=== PATIENT | male | born 1965 | race Caucasian/White ===

== ENCOUNTER 2021-04-20 08:14 | Emergency (ER) | payer OTHER, SELFPAY ==
[2021-04-20] VITALS (48 sets, daily range): BP systolic 106–131; BP diastolic 70–88; PULSE 54–82; RESP 6–22; TEMP 36.4–37.3; O2SAT 95–100
--- NOTE | ~2021-04-20 | XR_ITS ---
EXAMINATION: XR chest 1V portable EXAM DATE: 04/20/2021 08:50 INDICATION: sternal chest pain, nausea, had ND x6 days ago . TECHNIQUE: Portable AP frontal chest x-ray was obtained. There is no prior study for comparison. FINDINGS: The lungs are clear. There are no pleural effusions. The cardiomediastinal silhouette is within normal limits. There is no pneumothorax suspected. The bones and soft tissues are unremarkab le. IMPRESSION: No acute cardiopulmonary findings. Reviewed, dictated and finalized at location [facility]
--- NOTE | 2021-04-20 08:15 | ECG_ITS ---
Measurements Intervals [place] Rate: 68 P: 72 [place]: 155 QRS: 42 QRSD: 89 T: 68 QT: 364 QTc: 388 Interpretive Statements SINUS RHYTHM WITH SINUS ARRHYTHMIA LOW-VOLTAGE QRS IN LIMB LEADS BORDERLINE ECG NO PREVIOUS ECG AVAILABLE FOR COMPARISON Electronically Signed On 04-20-2021 13:18:14 [employer] by Moose Gonsalez M.D.
[2021-04-20] MEDS: ASPIRIN 81 MG CHEWABLE TABLET 324 MG PO (08:41)
--- NOTE | 2021-04-20 08:44 | ED.CHESTPAIN ---
HPI - Chest Pain General Chief Complaint: Chest Pain Stated Complaint: CHEST PAIN Time Seen by Provider: 04/20/21 08:29 Source: RN notes reviewed History of Present Illness HPI narrative: Patient presents emergency department from home for chest pain. Patient states symptoms began approximately 830 this morning when he was sitting down at work. The pain is over the midsternal chest and does not radiate described as a pressure associated with nausea patient also states he has had feelings like his heart was racing patient denies any abdominal pain vomiting or diarrhea. States that he was at [facility] last week and was admitted for chest pain and had a stress test that was negative at that time and was seen by Dr. Lemus. Patient states symptoms seem to worsen when he takes a deep breath Related Data Allergies Allergy/AdvReac Type Severity Reaction Status Date / Time Penicillins Allergy Mild Verified 05/27/09 19:36 Review of Systems Review of Systems: Gen.: Denies fevers or chills ENT: Denies congestion Respiratory: Ports shortness of breath CV: See HPI GI: Denies abdominal pain nausea, emesis or diarrhea Musculoskeletal: Denies back pain or muscle pain Neuro: Denies numbness, tingling, weakness or focal weakness Skin: Denies rash Except as documented, all other systems reviewed and negative [facility] Past Medical History Medical History (Updated 04/20/21 @ 13:09 by Kenny Wilkinson DO) Patient denies significant medical history Social History Social History (Updated 04/20/21 @ 13:07 by Kenny Wilkinson DO) Smoking status: Never smoker Exam Narrative: APPEARANCE: No acute distress, nontoxic, resting in bed EYES: EOMI HEENT: Normocephalic, atraumatic, OMM RESPIRATORY: No respiratory distress Clear to auscultation bilaterally with no rhonchi wheezing or rales. Patient states chest pain does increase with deep inspiration CARDIOVASCULAR: Regular rate and rhythm without murmurs rubs or gallops. ABDOMINAL: Soft, nontender, nondistended, no rebound or guarding MUSCULOSKELETAl: Moves all extremities. No clubbing, cyanosis or edema. NEURO: Awake and alert. Following commands, speech normal, no focal deficits SKIN:: Warm, dry. No rashes lesions or abrasions PSYCHIATRIC: Normal affect/mood, Course Course Emergency Course: Obtained old records from [facility] : Discussed with Dr. Lemus presentation work-up. Per Dr. Lemus patient with stress test lasting for approximately 10 minutes with negative stress test last week feels patient may be discharged with ER troponin with follow-up as an outpatient Patient remained on conveyor monitor no arrhythmias noted Discussed with patient results of workup and diagnosis. Discussed need for follow-up with primary care, proper use of medication, and reasons to return to the emergency department. Patient understands and agrees to current treatment plan Vital Signs Vital signs: Vital Signs Temperature 98.2 F 04/20/21 08:20 Pulse Rate 72 04/20/21 08:20 Respiratory Rate 18 04/20/21 08:20 Blood Pressure 120/81 04/20/21 08:20 Pulse Oximetry 99 04/20/21 08:20 Temperature 99.0 F 04/20/21 10:48 Pulse Rate 73 04/20/21 12:31 Respiratory Rate 13 04/20/21 12:31 Blood Pressure 122/84 04/20/21 12:31 Pulse Oximetry 97 04/20/21 12:31 MDM - Chest Pain MDM Narrative Medical decision making narrative: Patient's EKGs and labs are without significant high risk changes. Cardiac risk factors reviewed. Patient is felt likely low risk for ACS and reasonable for further risk stratification testing as an outpatient. Pain was not sudden or maximal in onset without tearing or ripping quality. No other signs of symptoms suggest aortic dissection. A low-risk Wells criteria is noted, PE is felt to be unlikely. No pneumonia seen on evaluation today. Patient is felt to be a reasonable candidate for continued evaluation as an outpatient. Patient with stress test
[2021-04-20 08:53] LABS: Basophils Absolute Auto 0.1 K/mm3 (0.0-0.1); Basophils Percent Auto 0.8 % (0.2-1.2); Eosinophils Absolute Auto 0.1 K/mm3 (0-0.3); Hematocrit 44.5 % (42.0-52.0); Hemoglobin 15.3 g/dL (14.0-18.0); Immature Granulocyte Absolute 0.01 K/mm3 (0.00-0.031); Immature Granulocyte Percent A 0.2 % (0-0.5); Lymphocytes Absolute Auto 1.64 K/mm3 (0.9-3.2); Lymphocytes Percent Auto 27.7 % (18.3-44.2); Mean Corpuscular HGB Conc 34.4 g/dl (32-36); Mean Corpuscular Hemoglobin 33.5 pg (26-34); Mean Corpuscular Volume 97.4 fl (80-100); Mean Platelet Volume 9.6 fl (7.4-10.4); Monocytes Absolute Auto 0.4 K/mm3 (0.1-0.6); Monocytes Percent Auto 7.3 % (2.6-8.5); Neutrophils Absolute Auto 3.7 K/mm3 (1.3-6.7); Platelet Count Result 225 k/mm3 (150-375); Red Blood Count 4.57 M/mm3 (4.6-6.20); Red Cell Distribution Width 11.8 % (11.5-14.5); White Blood Count 5.9 K/mm3 (4.5-10.0)
[2021-04-20 09:05] LABS: Alanine Aminotransferase 24 U/L (4-50); Albumin Level 4.1 g/dL (3.5-5.1); Alkaline Phosphatase 36 U/L (38-126); Anion Gap 5 mmol/L (8-16); Aspartate Amino Transferase 31 U/L (17-59); Bilirubin,Total 0.6 mg/dL (0.2-1.3); Blood Urea Nitrogen 14 mg/dL (9-20); Calcium 8.7 mg/dL (8.4-10.2); Carbon Dioxide 26 mmol/L (22-30); Chloride 106 mmol/L (98-107); Estimated CRCL calculation 79 ml/min; Estimated Glomerular Filt Rate > 60; Glucose 103 mg/dL (65-110); Sodium 137 mmol/L (137-145)
[2021-04-20 09:11] LABS: Prothrombin Time 12.7 Seconds (11.1-14.7)
[2021-04-20 09:12] LABS: Partial Thromboplastin Time 30.8 SECONDS (22.3-36.8)
[2021-04-20 09:15] LABS: Troponin I < 0.012 ng/mL (0.000-0.034)
[2021-04-20 09:26] LABS: Potassium 4.1 mmol/L (3.4-5.0)
[2021-04-20 10:51] LABS: D Dimer < 0.27 ug/mL (<0.48)
[2021-04-20 11:46] LABS: Troponin I < 0.012 ng/mL (0.000-0.034)
[2021-04-20] MEDS: MORPHINE SULFATE (*CRX) 2 MG/ML INJ IV PUSH (12:24)
== END 2021-04-20 13:25 | disposition home or self-care (01) ==
PROVIDERS: Emergency Provider Emergency Medicine; PCP Internal Medicine
DX: R07.9 Chest pain, unspecified (principal)
CPT/HCPCS: 36415; 71045; 80053; 84484; 85025; 85380; 85610; 85730; 93005; 96374; 99284; A9270; J2270

== ENCOUNTER 2022-05-05 09:14 | Emergency (ER) | payer OTHER, SELFPAY ==
--- NOTE | 2022-05-05 09:20 | ED.URI ---
HPI - URI/Sore Throat General Chief Complaint: Upper Respiratory Infection Stated Complaint: fever, cough Source: patient and RN notes reviewed Mode of arrival: ambulatory Limitations: no limitations History of Present Illness HPI Narrative: 57 y/o male presented for c/o cough, fever/chills, sore throat, fatigue. Temp at home 101.9. Onset 2-3 days. States he thinks fever broke yesterday and attempted to go to work today. However he has a persistent nonproductive cough described as a 'tickle in the throat' and was advised to be evaluated. Has been taking ibuprofen for symptoms. Denies sob, wheezing, n/v/d. Took negative home Covid test at onset of symptoms. MD elicited complaint: cough Related Data Home Medications Medication Instructions Recorded Confirmed bupropion HCl 300 mg 24 hr tablet, 300 mg PO DIRECTED 05/05/22 05/05/22 extended release levothyroxine 125 mcg tablet 125 mcg DIRECTED 05/05/22 05/05/22 (Synthroid) Allergies Allergy/AdvReac Type Severity Reaction Status Date / Time oxycodone Allergy Mild Itching Verified 05/05/22 09:30 Penicillins Allergy Mild Unknown Verified 05/05/22 09:22 [id number] Reductase Allergy Mild Redness of Verified 05/05/22 09:22 Inhibitor Skin Review of Systems Review of Systems: CONSTITUTIONAL: Endorses malaise, chills, sweats, fever EYES: Denies visual changes, redness, or discharge ENT: Reports rhinorrhea, sore throat CARDIOVASCULAR: Denies chest pain, palpitations, edema RESPIRATORY: Reports cough, post nasal drainage. 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 HEAD: Normocephalic EYES: PERRLA, conjunctivae clear ENT: Mucous membranes moist. TM pearly sinclair with dull light reflex bilaterally; no tragal tenderness. Oropharynx erythematous without lesions or exudate NECK: Supple. No lymphadenopathy CHEST: Clear to auscultation, breath sounds equal. Frequent [employer] cough. No wheezing, rhonchi, rales, or stridor. No respiratory distress, speaks in full sentences. HEART: Regular rate and rhythm. No murmur heard. SKIN: Warm, dry, no rash. NEURO: Alert and oriented x3. PSYCH: Normal mood and affect Course Course Emergency Course: Patient is aware of diagnosis, understands and agrees to treatment plan. Anticipatory guidance given. Patient agrees to follow-up as directed and is aware of reasons to seek care at the emergency department. Portions of this record may have been created with voice recognition software Level of Care: Express Care Visit Vital Signs Vital signs: Vital Signs Temperature 98.8 F 05/05/22 09:31 Pulse Rate 85 05/05/22 09:31 Respiratory Rate 12 05/05/22 09:31 Blood Pressure 118/90 05/05/22 09:31 Pulse Oximetry 98 05/05/22 09:31 Oxygen Delivery Room Air 05/05/22 09:31 Temperature 98.8 F 05/05/22 09:31 Pulse Rate 85 05/05/22 09:31 Respiratory Rate 12 05/05/22 09:31 Blood Pressure 118/90 05/05/22 09:31 Pulse Oximetry 98 05/05/22 09:31 Oxygen Delivery Room Air 05/05/22 09:31 reviewed MDM - URI/Sore Throat MDM Narrative Medical decision making narrative: Results of COVID, flu, and strep test reviewed with patient; declines chest x-ray at this time, states he will discuss with PCP. Advised supportive measures and signs/symptoms to go to the ER. Pt is appropriate for outpt treatment and f/u. Differential Diagnosis Differential diagnosis: Likely upper respiratory infection, sinusitis, viral infection, bronchitis, influenza and pharyngitis Lab Data Labs:
[2022-05-05 09:31] VITALS: BP 118/90; PULSE 85; RESP 12; TEMP 37.1; O2SAT 98
== END 2022-05-05 10:03 | disposition home or self-care (01) ==
PROVIDERS: Emergency Provider Nurse Practitioner Family; PCP Internal Medicine
DX: B34.9 Viral infection, unspecified (principal); Z20.822 Contact with and (suspected) exposure to COVID-19
CPT/HCPCS: 87081; 87426; 87804; 87880; 99213; C9803; G0463

== ENCOUNTER 2022-08-31 09:01 | Emergency (ER) | payer OTHER, SELFPAY ==
[2022-08-31 09:10] VITALS: BP 106/71; PULSE 64; RESP 18; TEMP 36.5; O2SAT 100
--- NOTE | 2022-08-31 09:10 | ED.EYEPROB ---
HPI - Eye Problem General Chief complaint: Eye Problems Stated complaint: Lt Eye Irritation Time Seen by Provider: 08/31/22 09:10 Source: patient Mode of arrival: ambulatory Limitations: no limitations History of Present Illness HPI Narrative: 57-year-old male presented for complaint of left eye irritation for about 2 days. States when he closes the eye he feels like something is on the inside of the lid. He states he has been waking with the eye crusted. Endorses redness and clear drainage throughout the day. He denies itching or purulent drainage. He reports some blurred vision, stating he thinks it is related to all the drainage. Endorses mild photophobia. patient reports of over 1 week ago he felt he got something into his eye while working on his vehicle, he states he flushed the eye and had no subsequent issues. MD chief complaint: eye pain Related Data Home Medications Medication Instructions Recorded Confirmed bupropion HCl 300 mg 24 hr tablet, 300 mg PO DIRECTED 05/05/22 08/31/22 extended release levothyroxine 125 mcg tablet 125 mcg DIRECTED 05/05/22 08/31/22 (Synthroid) Allergies Allergy/AdvReac Type Severity Reaction Status Date / Time oxycodone Allergy Mild Itching Verified 08/31/22 09:14 Penicillins Allergy Mild Unknown Verified 08/31/22 09:14 [id number] Reductase Allergy Mild Redness of Verified 08/31/22 09:14 Inhibitor Skin Review of Systems Review of Systems: CONSTITUTIONAL: Denies body aches, fever, chills EYES:Endorses redness and pain to left eye; FB sensation, photophobia denies visual changes ENT: Denies rhinorrhea, congestion, sore throat, or otalgia. CARDIOVASCULAR: Denies chest pain, palpitations RESPIRATORY: Denies cough or dyspnea. GASTROINTESTINAL: Denies abdominal pain, nausea, vomiting, or diarrhea. SKIN: Denies rash, itching, or wounds. MUSCULOSKELETAL: Denies back pain, joint pain, or myalgia. NEUROLOGIC: Denies headache, numbness, tingling, or weakness. 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 Please see nursing chart for further information. There is no relevant family history pertinent to the presenting complaint Exam Narrative: GENERAL: Well-appearing HEAD: Normocephalic, atraumatic. EYES: Left conjunctival injection, with FB noted on visual inspection to the 5oclock position over the iris; no eye lid or periorbital swelling, PERRLA EOMI. ENT: Mucous membranes pink and moist. No rhinorrhea. TMs normal bilaterally. Throat normal. Uvula midline. CHEST: Clear to auscultation. HEART: Regular rate and rhythm. ABDOMEN: Soft, nontender, nondistended SKIN: Warm, dry, no rash. Normal skin turgor. NEURO: No focal deficits. Alert and oriented x3 PSYCH: Normal affect. Course Course Emergency Course: Patient is aware of diagnosis, understands and agrees to treatment plan. Anticipatory guidance given. Patient agrees to follow-up as directed and is aware of reasons to seek care at the emergency department. Portions of this record may have been created with voice recognition software Level of Care: Express Care Visit Vital Signs Vital signs: Vital Signs Temperature 97.7 F 08/31/22 09:10 Pulse Rate 64 08/31/22 09:10 Respiratory Rate 18 08/31/22 09:10 Blood Pressure 106/71 08/31/22 09:10 Pulse Oximetry 100 08/31/22 09:10 Oxygen Delivery Room Air 08/31/22 09:10 Temperature 97.7 F 08/31/22 09:10 Pulse Rate 64 08/31/22 09:10 Respiratory Rate 18 08/31/22 09:10 Blo
[2022-08-31] MEDS: TETRACAINE HCL 0.5% OPHTH SOLN 4 ML BTL 1 DROP EACH EYE (09:20)
[2022-08-31] MEDS: FLUORESCEIN SOD 1 MG/STRIP EACH EYE (09:20)
[2022-08-31] MEDS: DACRIOSE EYE IRRIGATION 118 ML BOTTLE 10 ML LEFT EYE (09:20)
--- NOTE | 2022-08-31 09:54 | PC.NURSE ---
EYE WASH STAINED PER CARE PROCESS MANAGER, FB WAS REMOVED. CARE PROCESS MANAGER CONTACTING [facility] AT THIS TIME TO SET UP FOLLOW UP APPOINTMENT FOR PT.
== END 2022-08-31 09:58 | disposition home or self-care (01) ==
PROVIDERS: Emergency Provider Nurse Practitioner Family
DX: T15.02XA Foreign body in cornea, left eye, initial encounter (principal); E20.9 Hypoparathyroidism, unspecified
CPT/HCPCS: 65220; 99213; A9270; G0463